=== PATIENT | female | born 2000 | race Caucasian/White ===

== ENCOUNTER 2021-09-13 10:46 | Outpatient (CLI) | payer OTHER, SELFPAY ==
[2021-09-13 11:41] LABS: Alanine Aminotransferase 34 U/L (6-35); Albumin Level 4.3 g/dL (3.5-5.1); Alkaline Phosphatase 81 U/L (38-126); Anion Gap 7 mmol/L (8-16); Aspartate Amino Transferase 32 U/L (14-36); Bilirubin,Total 0.5 mg/dL (0.2-1.3); Blood Urea Nitrogen 10 mg/dL (7-17); Calcium 8.9 mg/dL (8.4-10.2); Carbon Dioxide 25 mmol/L (22-30); Chloride 103 mmol/L (98-107); Cholesterol 178 mg/dL (0-200); Estimated Glomerular Filt Rate > 60; Glucose 85 mg/dL (65-110); HDL Direct 47 mg/dL; Potassium 3.8 mmol/L (3.4-5.0); Sodium 135 mmol/L (137-145); Triglycerides 75 mg/dL (<150)
[2021-09-13 11:52] LABS: LDL Cholesterol Direct 92 mg/dL
[2021-09-13 11:55] LABS: Beta HCG Quantitative < 2.39 mIU/ML
[2021-09-13 12:55] LABS: Hemoglobin A1C 5.1 % (<5.7)
[2021-09-15 20:37] LABS: FSH 8.5 mIU/mL (***); Progesterone 0.5 ng/mL (***); Prolactin 8.4 ng/mL (***)
[2021-09-18 00:07] LABS: Estradiol, Ultrasensitive 67 pg/mL
[2021-09-18 16:26] LABS: Testosterone Free 8.1 pg/mL (0.1-6.4); Testosterone Total 92 ng/dL (2-45)
== END 2021-09-13 10:47 | disposition home or self-care (01) ==
LOC: ANHLAB 10:49
PROVIDERS: PCP Nurse Practitioner Family; Visit Provider Obstetrics & Gynecology
DX: N93.9 Abnormal uterine and vaginal bleeding, unspecified (principal)
CPT/HCPCS: 36415; 80053; 80061; 82670; 83001; 83036; 84144; 84146; 84402; 84403; 84702

== ENCOUNTER 2024-03-05 10:19 | Outpatient (CLI) | payer BC, SELFPAY ==
[2024-03-05 11:15] LABS: Basophils Absolute Auto 0.1 K/mm3 (0.0-0.1); Basophils Percent Auto 0.5 % (0.2-1.2); Eosinophils Absolute Auto 0.2 K/mm3 (0-0.3); Eosinophils Percent Auto 1.5 % (0-4.4); Hematocrit 40.8 % (37.0-47.0); Hemoglobin 13.6 g/dL (12.0-15.0); Immature Granulocyte Absolute 0.14 K/mm3 (0.00-0.031); Immature Granulocyte Percent A 1.3 % (0-0.5); Lymphocytes Absolute Auto 1.67 K/mm3 (0.9-3.2); Lymphocytes Percent Auto 15.2 % (18.3-44.2); Mean Corpuscular HGB Conc 33.3 g/dl (32-36); Mean Platelet Volume 9.4 fl (7.4-10.4); Monocytes Percent Auto 9.2 % (2.6-8.5); Neutrophils Absolute Auto 7.9 K/mm3 (1.3-6.7); Neutrophils Percent Auto 72.3 % (45.5-73.1); Platelet Count Result 277 k/mm3 (150-375); Red Blood Count 4.69 M/mm3 (4.2-5.4); Red Cell Distribution Width 13.6 % (11.5-14.5)
[2024-03-05 11:16] VITALS: BP 125/83; PULSE 100
[2024-03-05 11:23] LABS: Add Urine Microscopic? YES; Appearance Urine Clear (Clear); Bacteria Urine 1+ /hpf; Bilirubin Urine Negative (Negative); Blood Urine Negative (Negative); Color Urine Yellow (Yellow); Glucose Urine UA Negative (Negative); Ketones Urine Negative (Negative); Leukocyte Esterase Ur 1+ LEU/UL (Negative); Nitrate Urine Negative (Negative); Non Pathogenic Casts 0-2; Protein Urine Negative (Negative); RBC Urine 0-2 /hpf (0-2); Specific Grav Ur 1.014 (1.001-1.035); Squamous Epithelial Cell Urine Few /hpf (Few); Urobilinogen Urine 0.2 mg/dL (<2.0); pH Urine 6.5 (5.0-9.0)
[2024-03-05 11:27] LABS: Creatinine Urine 76.7 mg/dL; Total Protein Urine Random 10 mg/dL; Ur Ttl Prot Creatinine Ratio 0.13 mg/mg (0-0.20)
[2024-03-05 11:31] VITALS: BP 121/80; PULSE 104
[2024-03-05 11:32] LABS: Alanine Aminotransferase 12 U/L (6-35); Alkaline Phosphatase 131 U/L (38-126); Anion Gap 12 mmol/L (4-12); Aspartate Amino Transferase 20 U/L (14-36); Bilirubin,Total 0.3 mg/dL (0.2-1.3); Blood Urea Nitrogen 7 mg/dL (7-17); Calcium 9.5 mg/dL (8.4-10.2); Carbon Dioxide 20 mmol/L (22-30); Chloride 103 mmol/L (98-107); Estimated Glomerular Filt Rate > 60; Glucose 83 mg/dL (65-110); Potassium 3.9 mmol/L (3.4-5.0); Sodium 135 mmol/L (137-145); Uric Acid 4.9 mg/dL (2.5-7.5)
[2024-03-05 12:28] VITALS: BP 121/80; PULSE 104
== END 2024-03-05 12:30 ==
LOC: ANHOBOP 10:25 → ANHOBPP 10:37
PROVIDERS: PCP Nurse Practitioner Family; Visit Provider Obstetrics & Gynecology
DX: O13.9 Gestational [pregnancy-induced] hypertension without significant proteinuria, unspecified trimester (principal); Z3A.00 Weeks of gestation of pregnancy not specified
CPT/HCPCS: 36415; 59025; 80053; 81001; 82570; 84156; 84550; 85025; 87086; 99199

== ENCOUNTER 2024-03-14 11:36 | Outpatient (CLI) | payer BC, SELFPAY ==
[2024-03-14 12:05] VITALS: BMI 54.6
[2024-03-14 13:05] LABS: Collection Time Urine 24 HOURS
[2024-03-14 13:40] LABS: Creatinine Urine 81.7 mg/dL; Patient Weight 318 Lbs; Total Protein Urine Random 17 mg/dL
[2024-03-14 15:00] LABS: Total Protein Urine 24 Hr 340 mg/24hr (28-141); Total Volume 24 Hour Urine 2000 ml
[2024-03-14 15:57] LABS: Total Volume 24 Hour Urine 2000 ml
[2024-03-14 17:05] LABS: Creatinine Clearance Urine 165.4 ml/min (75-125)
== END 2024-03-14 11:37 | disposition home or self-care (01) ==
LOC: ANHOBOP 11:46
PROVIDERS: Visit Provider Obstetrics & Gynecology
DX: O16.3 Unspecified maternal hypertension, third trimester (principal); Z3A.00 Weeks of gestation of pregnancy not specified
CPT/HCPCS: 81050; 82575; 84156

== ENCOUNTER 2024-03-14 14:30 | Inpatient (IN) | payer BC, SELFPAY ==
[2024-03-14] VITALS (19 sets, daily range): BP systolic 126–157; BP diastolic 61–95; PULSE 92–115; RESP 16; TEMP 36.7–37.1; BMI 54.5
[2024-03-14 15:44] LABS: Basophils Absolute Auto 0.1 K/mm3 (0.0-0.1); Basophils Percent Auto 0.5 % (0.2-1.2); Eosinophils Absolute Auto 0.3 K/mm3 (0-0.3); Eosinophils Percent Auto 2.1 % (0-4.4); Hematocrit 38.6 % (37.0-47.0); Hemoglobin 12.9 g/dL (12.0-15.0); Immature Granulocyte Absolute 0.16 K/mm3 (0.00-0.031); Immature Granulocyte Percent A 1.4 % (0-0.5); Lymphocytes Absolute Auto 1.95 K/mm3 (0.9-3.2); Lymphocytes Percent Auto 16.5 % (18.3-44.2); Mean Corpuscular HGB Conc 33.4 g/dl (32-36); Mean Corpuscular Hemoglobin 28.6 pg (26-34); Mean Corpuscular Volume 85.6 fl (80-100); Mean Platelet Volume 9.6 fl (7.4-10.4); Monocytes Absolute Auto 0.9 K/mm3 (0.1-0.6); Monocytes Percent Auto 7.3 % (2.6-8.5); Neutrophils Absolute Auto 8.6 K/mm3 (1.3-6.7); Neutrophils Percent Auto 72.2 % (45.5-73.1); Platelet Count Result 274 k/mm3 (150-375); Red Blood Count 4.51 M/mm3 (4.2-5.4); Red Cell Distribution Width 13.5 % (11.5-14.5); White Blood Count 11.9 K/mm3 (4.5-10.0)
[2024-03-14] MEDS: LACTATED RINGERS 1,000 ML 125 ML IV CONT (15:49)
[2024-03-14] MEDS: AMPICILLIN 2 GM/NS 100 ML 2 GM/100 ML BAG IVPB (15:49)
--- NOTE | 2024-03-14 15:57 | LDADM ---
This patient, Cortney Meneses, was admitted to Labor/Delivery/Recovery 107 on 03/14/24 at 14:30. Plans for labor, pain management and were discussed with patient. Patient/family oriented to hospital policies and general routines including ID bracelet, bed and alarms, visiting hours, pain management, procedures, bathroom and other care routines, personal items, smoking policy, room service/diet and guest tray routines, infant security routines, and visiting hours. Patient/Family are encouraged to report perceived risks to care and to ask questions if they do not understand what they are told or what they should do. See OBIX for further documentation.
[2024-03-14 16:00] LABS: Alanine Aminotransferase 9 U/L (6-35); Albumin Level 3.7 g/dL (3.5-5.1); Alkaline Phosphatase 164 U/L (38-126); Anion Gap 7 mmol/L (4-12); Aspartate Amino Transferase 19 U/L (14-36); Bilirubin,Total 0.4 mg/dL (0.2-1.3); Blood Urea Nitrogen 6 mg/dL (7-17); Calcium 9.6 mg/dL (8.4-10.2); Carbon Dioxide 22 mmol/L (22-30); Chloride 106 mmol/L (98-107); Estimated Glomerular Filt Rate > 60; Glucose 73 mg/dL (65-110); Potassium 3.7 mmol/L (3.4-5.0); Sodium 135 mmol/L (137-145)
[2024-03-14 16:15] LABS: Rapid Plasma Reagin Non-Reactive (NonReactive)
[2024-03-14 16:42] LABS: HIV 1/2 Ab P24 Ag Result Negative (Negative)
[2024-03-14] MEDS: DINOPROSTONE 10 MG VAG INSERT VAGINAL (16:49)
[2024-03-14] MEDS: AMPICILLIN 1 GM/NS 50 ML 1 GM/50 ML BAG IVPB ×2 (20:00→23:59)
--- NOTE | 2024-03-14 20:13 | P.HP_ITS ---
H&P: HPI History of Present Illness Date/Time: 03/14/24 20:13 Chief Complaint: low fluid Narrative: Cortney is a 23yo @ 35.6wks who presented to routine testing. She has been having visual changes and mild range blood pressures. She has been seeing MFM as well. During her NST/BPP, she was found to have severe oligohydramnios with LUI of 1.8cm and on NST occasional variable deceleration was noted. She reports concern for possible leakage of fluid for the last two weeks, but thought it was just excess sweat. She also turned in her 24 hour urine and was found to have 340g of protein. She reports good movement. No ctx or VB. Her is complicated by: - Morbid obesity; BMI 52-- - MFM for scans - early 1 hour- 93, HbA1c 5.4 - Needs ASA 81mg at 12wks. - PCOS/pre-DM - Anxiety - Rubella/CMV non-immune - CHTN?? 24 hour urine not performed/all BP have been normal since original elevation, will monitor - superimposed pre-eclampsia w/o severe features; 24 hour urine protein of 340g - Covid @ 23wga - Oligohydramnios, LUI 1.8cm Review of Systems Constitutional: Constitutional: Denies chills, Denies fever(s) and Denies headache(s) Eyes: Eyes: Reports change in vision ENT: Denies headache(s) Cardiovascular: Cardiovascular: Denies chest pain and Denies dyspnea Respiratory: Respiratory: Denies dyspnea Genitourinary: Genitourinary: Denies abnormal vaginal bleeding and Reports vaginal discharge Neurologic: Denies headache(s) Psychiatric: Psychiatric: Denies anxiety and Denies depression [facility] Past Medical History Medical History Anxiety disorder Depression History of PCOS Prediabetes Family History Family History Father No problems noted. Mother No problems noted. Sibling No problems noted. 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 Gender identity (if verbalized by the patient): Female Sexual Orientation (if Verbalized by the Patient): Straight or Heterosexual Spiritual care concerns: No Meds Home Medications and Allergies Home Medications Medication Instructions Recorded Confirmed Type docosahexaenoic acid 200 mg 200 mg PO 09/25/23 03/12/24 History capsule ( DHA) aspirin 81 mg tablet,delayed 81 mg PO DAILY 10/23/23 03/14/24 History release (Adult Low Dose Aspirin) metformin 500 mg/5 mL oral solution 500 mg PO DAILY 01/15/24 03/14/24 History Allergies Allergy/AdvReac Type Severity Reaction Status Date / Time rsv vaccine AdvReac Mild Rash Uncoded 03/12/24 09:17 Vital Signs Vital Signs - 24 hr 03/14/24 15:55 03/14/24 15:40 03/14/24 17:46 Temperature 98.8 F Pulse Rate 106 H Respiratory Rate 16 Blood Pressure 136/83 Oxygen Delivery Room Air 03/14/24 18:01 03/14/24 18:16 03/14/24 18:31 Temperature Pulse Rate 107 H 115 H 108 H Respiratory Rate Blood Pressure 128/80 142/86 H 146/80 H Oxygen Delivery 03/14/24 18:50 03/14/24 19:01 03/14/24 19:31 Temperature Pulse Rate 115 H 106 H 101 H Respiratory Rate Blood Pressure 127/95 H 126/61 127/67 Oxygen Delivery 03/14/24 20:01 Temperature Pulse Rate 109 H Respiratory Rate Blood Pressure 136/84 Oxygen Delivery Exam Const: General: cooperative, no acute distress and obese Nutritional Appearance: obese Orientation/consciousness: patient oriented x3 Resp: Effort & Inspection: normal respiratory effort Cardio: Rate: regular rate GI: GI Palp: No abdominal tenderness : Other: FHT's: 150's/ mod yue/ + accels/ occasional variable decels - cat 2 but overall reassuring TOCO: ctxs q_min Cervix: 1/thick/-3 Membranes: intact Presentation: cephalic Skin: General skin exam: normal color Neuro: General: patient oriented x3 Extrem: General: normal to inspection Psych: Appearance: grossly normal Affect: normal affect Attitude: cooperative H&P: Results Labs Labs: Short CBC 03/14/24 Range/Units 15:22 WBC 11.9 H (4.5-10.0) K/mm3 Hgb 12.9 (12.0-15.0) g/dL Hct 38.6 (37.0-47.0) % Plt Count 274 (150-375) k/mm3 BMP 03/14/24 15:22 Sodium 135 L Potassium 3.7 Chloride 106 Carbon Dioxide 22 BUN 6 L Creatinine 0.50 L Glucose 73 Calcium 9.6 Liver Function 03/14/24 Range/Units 15:22 Total Bilirubin 0.4 (0.2-1.3) mg/dL AST 19 (14-36) U/L ALT 9 (6-35) U/L Alkaline Phosphatase 164 H (38-126) U/L Albumin 3.7 (3.5-5.1) g/dL Assessment and Plan Assessment and plan (1) Oligohydramnios: Qualifiers: Fetus number: single or unspecified fetus Trimester: third trimester Qualified Code(s): O41.03X0 - Oligohydramnios, third trimester, not applicable or unspecified Code(s): O41.00X0 - Oligohydramnios, unspecified trimester, not applicable or unspecified Status: Acute (2) Pre-eclampsia: Qualifiers: Trimester: third trimester Qualified Code(s): O14.93 - Unspecified pre- eclampsia, third trimester Code(s): O14.90 - Unspecified pre-eclampsia, unspecified trimester Status: Acute Plan - ROM plus negative; but oligohydramnios in the setting of occasional variable decels and pre-eclampsia - Cervidil overnight for cervical ripening - Plan for pitocin/AROM in AM - Ampicillin for GBS unknown and prematurity - Anesthesia consult PRN pain - continuous monitoring overnight; reassuring
[2024-03-15] VITALS (333 sets, daily range): BP systolic 94–166; BP diastolic 46–118; PULSE 28–138; TEMP 36.7–37.6; O2SAT 84–100
[2024-03-15] MEDS: AMPICILLIN 1 GM/NS 50 ML 1 GM/50 ML BAG IVPB ×5 (04:00→21:50)
[2024-03-15] MEDS: OXYTOCIN 30 UNITS/NS 500 ML 30 UNITS/500 ML BAG 6 UNITS IV CONT (05:52)
[2024-03-15] MEDS: ONDANSETRON INJ 4 MG/2 ML VIAL IV PUSH ×2 (06:02→21:46)
--- NOTE | 2024-03-15 06:23 | WPDANESEPP ---
Anes - Eval Pre Procedure Procedure: Labor epidural Date/Time: 03/15/24 06:23 Surgeon: checo Preop Diagnosis: pain during labor Pre Op Diagnosis: Induction of Labor Patient Data Age: 23 Gender: F Height: 1.63 m Weight: 144 kg Last Vital Signs Temp 36.8 C 03/15/24 04:00 Pulse 95 03/15/24 06:01 Resp 16 03/14/24 15:40 BP 126/74 03/15/24 06:01 Pulse Ox 97 03/15/24 06:22 O2 Del Method Room Air 03/14/24 15:55 Allergies Allergy/AdvReac Type Severity Reaction Status Date / Time rsv vaccine AdvReac Mild Rash Uncoded 03/12/24 09:17 Home Medications Medication Instructions Recorded Confirmed Type docosahexaenoic acid 200 mg 200 mg PO 09/25/23 03/12/24 History capsule ( DHA) aspirin 81 mg tablet,delayed 81 mg PO DAILY 10/23/23 03/14/24 History release (Adult Low Dose Aspirin) metformin 500 mg/5 mL oral solution 500 mg PO DAILY 01/15/24 03/14/24 History Laboratory Tests 03/14/24 15:22 WBC 11.9 H K/mm3 (4.5-10.0) RBC 4.51 M/mm3 (4.2-5.4) Hgb 12.9 g/dL (12.0-15.0) Hct 38.6 % (37.0-47.0) MCV 85.6 fl (80-100) MCH 28.6 pg (26-34) MCHC 33.4 g/dl (32-36) RDW 13.5 % (11.5-14.5) Plt Count 274 k/mm3 (150-375) MPV 9.6 fl (7.4-10.4) Immature Gran % (Auto) 1.4 H % (0-0.5) Neut % (Auto) 72.2 % (45.5-73.1) Lymph % (Auto) 16.5 L % (18.3-44.2) [place] % (Auto) 7.3 % (2.6-8.5) Eos % (Auto) 2.1 % (0-4.4) Baso % (Auto) 0.5 % (0.2-1.2) Lymph # (Auto) 1.95 K/mm3 (0.9-3.2) [place] # (Auto) 0.9 H K/mm3 (0.1-0.6) Eos # (Auto) 0.3 K/mm3 (0-0.3) Baso # (Auto) 0.1 K/mm3 (0.0-0.1) Abs Immat Gran (auto) 0.16 H K/mm3 (0.00-0.031) Absolute Neuts (auto) 8.6 H K/mm3 (1.3-6.7) Absolute Nucleated RBC 0.000 K/mm3 (0.0-0.012) Nucleated RBC % 0.0 % (0.0-0.2) Sodium 135 L mmol/L (137-145) Potassium 3.7 mmol/L (3.4-5.0) Chloride 106 mmol/L (98-107) Carbon Dioxide 22 mmol/L (22-30) Anion Gap 7 mmol/L (4-12) BUN 6 L mg/dL (7-17) Creatinine 0.50 L mg/dL (0.7-1.0) Estim Creat Clear Calc Not Reportable Estimated GFR > 60 (59 - ) Glucose 73 mg/dL (65-110) Calcium 9.6 mg/dL (8.4-10.2) Total Bilirubin 0.4 mg/dL (0.2-1.3) AST 19 U/L (14-36) ALT 9 U/L (6-35) Alkaline Phosphatase 164 H U/L (38-126) Total Protein 7.0 g/dL (6.3-8.2) Albumin 3.7 g/dL (3.5-5.1) RPR Non-reactive (NonReactive) HIV 1&2 Ab/P24 Ag 4thGn Negative (Negative) Blood Type O Positive Antibody Screen Negative Patient hx anesthesia problems: none Family hx anesthesia problems: none Results Review: All pre-operative results and documents have been reviewed as part of the pre-operative evaluation. [facility] Past Medical History Medical History Anxiety disorder Depression History of PCOS Prediabetes Family History Family History Father No problems noted. Mother No problems noted. Sibling No problems noted. 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
--- NOTE | 2024-03-15 08:08 | PM.OBPNLAB ---
Pain Control Date/time seen: 03/15/24 08:08 Pain control: tolerating well Pelvic Exam Dilation (cm): 2 (.5) Effacement (%): 70 station: -3 Comments: attempt at rupture was performed; unsure if ROM or pt urinated. Pt then got very anxious, felt like she was going to vomit and asked for the exam to stop before verifying if it was ROM or not; IUPC was not placed. Will attempt placement in an hour Contractions Monitor mode: External Assessment and Plan Pitocin rate (mU/min): 12 Assessment: induction ongoing Plan: continuous present management Comments: - recommend epidural - s/p zofran 4mg at 0600; will give Phenergan 12.5mg once - continue pitocin augmentation - will attempt IUPC placement later after verifying ROM
[2024-03-15] MEDS: PROMETHAZINE HCL 25 MG/ML AMPUL 12.5 MG IV PUSH (08:12)
[2024-03-15] MEDS: fentaNYL CITRATE INJ (*CRX) 100 MCG/2 ML VIAL IV PUSH (10:11)
[2024-03-15] MEDS: LACTATED RINGERS 1,000 ML 125 ML IV CONT ×2 (10:41→11:45)
--- NOTE | 2024-03-15 10:41 | PM.OBPNLAB ---
Pain Control Date/time seen: 03/15/24 10:41 Pain control: narcotic analgesia Comments: requesting epidural Pelvic Exam Dilation (cm): 4 (.5) Effacement (%): 70 station: -2 Amniotic membrane status: Ruptured Contractions Monitor mode: Internal Contraction frequency: 2 (-3) Status status: Category l Assessment and Plan Pitocin rate (mU/min): 12 Assessment: induction ongoing Plan: continuous present management Comments: IUPC placed on this exam continue pitocin augmentation per protocol continue ampicillin pt requesting epidural
--- NOTE | 2024-03-15 23:41 | PM.OBPNVD ---
OB - PN: Subj Subjective Date/time seen: 03/15/24 23:41 Interval history: fht 145, cervix /-1. Cat 1. Continue Pitocin. OB - PN: Obj Data Labs 03/14/24 15:22 03/14/24 15:22 OB - PN A/P Time Spent With Patient Time: Total time spent is greater than 50% in coordination of care (as documented) at patient's floor/unit and/or counseling patient:
[2024-03-16] VITALS (30 sets, daily range): BP systolic 93–151; BP diastolic 43–88; PULSE 88–127; RESP 18; TEMP 36.3–37.9; O2SAT 93–99
[2024-03-16] MEDS: AMPICILLIN 1 GM/NS 50 ML 1 GM/50 ML BAG IVPB (01:36)
--- NOTE | 2024-03-16 03:15 | P.PCNOB_ITS ---
OB - Vaginal Delivery Note Procedure Delivery date: 03/16/24 Events: Oligohydramnios and Preeclampsia w/o severe features Induction method: Per Pitocin Protocol and Per Cervidil Protocol Delivery augmentation: Rupture of Membranes and Pitocin Delivery monitor: External FHT, External Uterine and Internal Uterine Route of delivery: Episiotomy description: None Laceration Description: Perineal - 2nd Degree Delivery repair: vicryl (2.0 vicryl) Specimen: Yes (placenta and cord) Quantitative Blood Loss (ml): 200 Anesthesia type: Epidural Disposition: Floor Complications: No immediate complications Narrative: She was admitted for IOL. She had cervidil placed and then Pitocin started. She was started on Ampicillin for GBS prophylaxis for prematurity. She had AROM clear. She progressed to active labor after approximately 12 hours. She did have pitocin stopped and restarted during this. She dilated to complete, push for 30 minutes, terminal bradycardia and delivered. Nose mouth suctioned with bulb at perineum. Peds present. With gentle traction, the arms and the rest of delivered. She did have a bandelero cord x 1 loose reduced. She was placed on m aternal abdomen vigorously crying. Delayed cord clamping for 45 secs. Cord blood and cord gases obtained. Pitocin started. Placenta delivered spontaneously and intact. She sustained a second degree perineal laceration repaired with 2.0 vicryl. [place] Baby Date of : 03/16/24 Time of : 02:45 Gestational Age by Date: 36 gender: Female presentation: vertex position: Left Occiput Anterior Placenta delivery description: Spontaneous Cord Vessel Description: 3 Vessels, Reduced, Delayed Cord Clamping and Around Body score one minute: 8 score five minutes: 8
[2024-03-16] MEDS: OXYTOCIN 30 UNITS/NS 500 ML 30 UNITS/500 ML BAG 125 UNITS IV CONT (03:19)
[2024-03-16] MEDS: FAMOTIDINE 20 MG/2 ML VIAL IV PUSH (03:23)
[2024-03-16] MEDS: LIDOCAINE HCL 1% LOCAL INJ 20 ML VIAL (04:53)
[2024-03-16] MEDS: BENZOCAINE 20% AER SPR (*SP) 56 GM CAN 1 SPRAY TOPICAL (05:06)
[2024-03-16] MEDS: WITCH HAZEL 40 PADS 1 PAD TOPICAL (05:06)
--- NOTE | 2024-03-16 06:49 | OBPPTRN ---
0545-Patient transferred to post room #279 via wheelchair. Support person present. Oriented to unit, room, information board, rooming in, admission packet and security measures. Patient verbalizes understanding.
[2024-03-16] MEDS: MULTIVIT/MIN/PREN/FOL AC/IRON TABLET 1 TAB PO (07:45)
[2024-03-16] MEDS: IBUPROFEN 600 MG TABLET PO ×3 (07:45→21:10)
[2024-03-16] MEDS: DOCUSATE SODIUM 100 MG CAPSULE PO (07:46)
--- NOTE | 2024-03-16 09:00 | PC.NURSE ---
Breast pump provided due to in level 2 nursery. Instructions given on cleaning, care, usage, that there should be no pain, pumping schedule for milk production, collection, and storage of human milk. Patient was assessed for correct placement, flange size, to pump for comfort and nipple stretching/stimulation for adequate milk production every 3 hours (8 times in 24 hours) 1-2 times at night. Parents are encouraged to record the pumping schedule on the feeding sheet.?Mother voiced understanding of the education shared along with mom/baby guide and the pump measurement, flange fit handout for additional resource information. Reported to the Primary RN.
[2024-03-16] MEDS: ACETAMINOPHEN 325 MG TABLET 650 MG PO ×2 (16:36→21:10)
--- NOTE | 2024-03-16 18:10 | PC.NURSE ---
1700-Pt left on a 4 hour pass to go see baby at [facility].
--- NOTE | 2024-03-16 21:05 | PC.NURSE ---
2104- Patient returned from visiting baby at [facility] at 2104 via wheelchair.
[2024-03-17 04:20] VITALS: BP 114/57; PULSE 100
[2024-03-17] MEDS: IBUPROFEN 600 MG TABLET PO (04:20)
[2024-03-17] MEDS: WITCH HAZEL 40 PADS 1 PAD TOPICAL (04:28)
[2024-03-17 05:46] LABS: Hematocrit 34.7 % (37.0-47.0); Hemoglobin 11.2 g/dL (12.0-15.0)
[2024-03-17] MEDS: MULTIVIT/MIN/PREN/FOL AC/IRON TABLET 1 TAB PO (08:36)
[2024-03-17 08:45] VITALS: BP 124/88; PULSE 94; RESP 20; TEMP 36.6; O2SAT 100
[2024-03-17] MEDS: DOCUSATE SODIUM 100 MG CAPSULE PO (08:45)
[2024-03-17] MEDS: MEASLES,MUMPS,RUBELLA VACCINE 0.5 ML VIAL SUB-Q (08:56)
--- NOTE | 2024-03-17 09:18 | P.DS_ITS ---
DS: Admitting Diagnosis Discharge Date 03/17/24 Admitting Diagnosis Pre-eclampsia without severe features. DS: Discharge Diagnosis Discharge Diagnosis (1) Pre-eclampsia affecting childbirth: Code(s): O14.94 - Unspecified pre-eclampsia, complicating childbirth Status: Acute Assessment and Plan: Without severe symptoms. (2) Vaginal delivery: Code(s): O80 - Encounter for full-term uncomplicated delivery Status: Acute OB - DS: Summary Hospital Course Hospital Course: She was admitted for [facility] for pre-eclampsia. She had cervidil and Pitocin. She had a vaginal delivery. Her blood pressures were mostly normal except during a period where she had pain. No severe symptoms. Her baby did get transferred to outside facility and s he did get a pass to see the baby. She did well. Her blood pressures were normal after that. No symptoms. She was discharged to home on aris 1, 36 hours after delivery. Hypertension precautions discussed. OB Procedures : NST and Ultrasound OB Procedures Intrapartum: Spontaneous Vag Delivery OB Procedures: : None Peripartum Data Delivery Method: Natural Vaginal Laceration Description: Perineal - 2nd Degree Episiotomy description: None Procedures: Procedures Operation Date: 03/15/24 23:30 <No data on this case meets the specified criteria> complications: none Status at Discharge Functional status at discharge: independent ambulation Time Spent with Patient Time attestation: Total time spent providing and/or coordinating discharge services: Exam Const: General: cooperative Orientation/consciousness: oriented to person, oriented to place and oriented to time HENMT: Face/Nose/Sinus: Normal external nose present Eyes: General: appearance normal, both eyes and all related structures Resp: Effort & Inspection: normal respiratory effort GI: Inspection: normal to inspection Neuro: General: oriented to person, oriented to place and oriented to time Extrem: General: normal to inspection and no calf tenderness Psych: Appearance: grossly normal Mental Status: mental status grossly normal Other: perineum healing DS: Data Data Completed and Pending Labs on day of discharge: Labs from last 24 hours 03/17/24 05:20 Hgb 11.2 L Hct 34.7 L Discharge Plan Discharge Attending physician on discharge: Che King Consulting providers: Janel Das Discharging Clinician: Mello Alva Anticipated Discharge Date/Time: 03/17/24 15:00 Patient Disposition: Home, Self-Care Activity: pelvic rest Diet: regular Patient Instructions: Antibiotic Form Stand Alone Forms: General Discharge Information Follow-up/Referrals: Che King MD [Physician] - Call for Appointment Discharge Medications: No Action aspirin [Adult Low Dose Aspirin] 81 mg tablet,delayed release (DR/EC) 81 mg PO DAILY DHA 200 mg capsule 200 mg PO metformin 500 mg/5 mL solution 500 mg PO DAILY Date of admission: 03/14/24 14:30 Primary Care Provider: UNKNOWN,DOCTOR Admitting Provider: Che King Attending physician on admission: Che King Condition: Stable
--- NOTE | 2024-03-17 09:24 | PM.OBPNVD ---
OB - PN: Subj Subjective Date/time seen: 03/17/24 09:24 Interval history: Denies headache scotomata or RUQ pain, has adequate pain control. Baby doing well at hospital. Patient comments: pain well controlled, tolerating diet and other (Decreasing lochia.) OB - PN: Obj Data Labs 03/17/24 05:20 03/14/24 15:22 Labs: Laboratory Results - last 24 hr 03/17/24 05:20 Hgb 11.2 L Hct 34.7 L OB - PN A/P Assessment and Plan (1) Vaginal delivery: Code(s): O80 - Encounter for full-term uncomplicated delivery Status: Acute Assessment and Plan: PPD 1. S/p . She is doing well. She would like to be discharged. Will discharge home today. Discussed PIH precautions. (2) Pre-eclampsia affecting childbirth: Code(s): O14.94 - Unspecified pre-eclampsia, complicating childbirth Status: Acute Assessment and Plan: No severe symptoms. Normal blood pressures. PIH precautions discussed. Plan day: 1 Plan: routine care Comments: Patient doing well. Time Spent With Patient Time: Total time spent is greater than 50% in coordination of care (as documented) at patient's floor/unit and/or counseling patient: Exam Psych: Affect: normal affect Other: Abd: fundus firm below umbilicus, nontender Perineum: healing Ext: nontender
[2024-03-19 11:15] VITALS: BP 131/81; PULSE 80; RESP 20; TEMP 36.3; O2SAT 100
== END 2024-03-17 11:45 | disposition home or self-care (01) | DRG 807 ==
LOC: ANHOB2 03-17 10:59 → ANHLDR 03-19 08:56 → ANHOB2 03-19 08:56
PROVIDERS: Admitting Provider Obstetrics & Gynecology; Visit Provider Obstetrics & Gynecology
DX: O41.03X0 Oligohydramnios, third trimester, not applicable or unspecified (principal); Z37.0 Single live birth; O76 Abnormality in fetal heart rate and rhythm complicating labor and delivery; O99.214 Obesity complicating childbirth; E66.01 Morbid (severe) obesity due to excess calories; O14.94 Unspecified pre-eclampsia, complicating childbirth; O70.1 Second degree perineal laceration during delivery; O69.82X0 Labor and delivery complicated by other cord entanglement, without compression, not applicable or unspecified; O14.04 Mild to moderate pre-eclampsia, complicating childbirth; Z3A.35 35 weeks gestation of pregnancy
CPT/HCPCS: 36415; 80053; 85014; 85018; 85025; 86592; 86703; 86850; 86900; 86901; 88307; 90710; A9270; G0432; J0290; J2003; J2405; J2550; J2590; J2795; J3010; J7120